=== PATIENT | female | born 1940 | race Caucasian/White ===

== ENCOUNTER 2017-03-19 12:45 | Emergency (ER) ==
[2017-03-19 12:49] VITALS: BP 188/85; TEMP 97.1; BMI 29.7
--- NOTE | 2017-03-19 12:57 | ED.PDOC ---
General ED Provider: Dr. ESTHELA HARKINS JR Chief Complaint: Abdominal Pain Stated Complaint: abdominal pain feels bad (3 weeks ago new med can cause abd pain) no NVD[End]4 days 97.1 86 18 95% 188/85 05/01 Time Seen by Physician: 12:56 Mode of Arrival: Walk-In Information Source: Patient Exam Limitations: No limitations Primary Care Provider: ALINA OLMOS Nursing and Triage Documentation Reviewed and Agree: No Review of Systems - Review Of Systems Constitutional: Reports: Malaise, Weakness Eyes: Reports: No symptoms Ears, Nose, Mouth, Throat: Reports: No symptoms Respiratory: Reports: No symptoms Cardiac: Reports: No symptoms GI: Reports: Abdomen distended, Abdominal pain, Nausea. Denies: Constipated : Reports: No symptoms Musculoskeletal: Reports: No symptoms Skin: Reports: No symptoms Neurological: Reports: Cognitive dysfunction, Headache Endocrine: Reports: No symptoms Hematologic/Lymphatic: Reports: No symptoms All Other Systems: Other Past Medical History - Past Medical History Endocrine: Reports: DM 2 Cardiovascular: Reports: Hypertension Respiratory: Reports: COPD Hematological: Reports: None Gastrointestinal: Reports: None Genitourinary: Reports: None Neuro/Psych: Reports: Migraine, Anxiety, Depression Musculoskeletal: Reports: Arthritis, Unknown Cancer: Reports: None Last Menstrual Period: none freq headaches Other Pertinent Past Medical History: Osteoarthritis. - Surgical History General Surgical History: Reports: Orthopedic (Left Knee replacement), Back Surgery - Family History Family History: Reports: None - Social History Smoking Status: Never smoker Hx Substance Use: No Alcohol Screening: None Physical Exam - Physical Exam Appearance: Well-appearing Pain Distress: Mild Eyes: MICHELLE, EOMI, Conjunctiva clear ENT: Ears normal, Nose normal, Oropharynx normal Neck: Supple Respiratory: Airway patent, Breath sounds clear, Breath sounds equal, Respirations nonlabored Cardiovascular: RRR, Pulses normal, No rub, No murmur GI/: Soft, No masses (LOWER Abdominal fullness without palpable mass), No Organomegaly, Tender, Bowel sounds hypoactive Musculoskeletal: Normal strength, ROM intact, No edema, No calf tenderness Skin: Warm, Dry, Normal color Neurological: Sensation intact, Motor intact, Alert, Oriented (person place poor short term memory) Psychiatric: Affect appropriate, Mood appropriate Critical Care Note - Critical Care Note Total Time (mins): 0 Course - Course Hematology/Chemistry: 03/19/17 12:58 03/19/17 12:58 Orders, Labs, Meds: Lab Review 03/19/17 03/19/17 12:58 13:10 WBC 6.84 RBC 4.47 Hgb 12.5 Hct 37.5 MCV 83.9 MCH 28.0 MCHC 33.3 RDW Coeff of [place] 13.7 Plt Count 238 Immature Gran % (Auto) 0.3 Neut % (Auto) 69.4 Lymph % (Auto) 23.1 Starr % (Auto) 5.6 Eos % (Auto) 1.0 Baso % (Auto) 0.6 Immature Gran # (Auto) 0.0 Neut # 4.8 Lymph # 1.6 Starr # 0.4 Eos # 0.1 Baso # 0.0 Sodium 140 Potassium 3.8 Chloride 100 Carbon Dioxide 29 Anion Gap 14.8 BUN 14 Creatinine 0.84 Estimated GFR (MDRD) 66.00 BUN/Creatinine Ratio 16.66 Glucose 137 H Calcium 9.9 Total Bilirubin 0.58 AST 18 ALT 12 Alkaline Phosphatase 63 Total Protein 6.9 Albumin 3.6 Globulin 3.3 Albumin/Globulin Ratio 1.09 Amylase 61 Lipase 13 Urine Color Yellow Urine Clarity Clear Urine pH 7.5 Ur Specific [place] 1.020 Urine Protein Negative Urine Glucose (UA) Negative Urine Ketones Negative Urine Blood Negative Urine Nitrite Negative Urine Bilirubin Negative Urine Urobilinogen 0.2 Ur Leukocyte Esterase Trace Urine Microscopic WBC 0-2 Ur Squamous Epith Cells 2-5 Ur Renal Epithelial Cell 2-5 Urine Bacteria Trace H. pylori IgG Antibody Negative Orders Category Date Time Status AMYLASE Stat LAB 03/19/17 12:58 Completed CBC W/ AUTO DIFF Stat LAB 03/19/17 12:58 Completed COMPREHENSIVE METABOLIC PANEL Stat LAB 03/19/17 12:58 Completed H. PYLORI SCREEN Stat LAB 03/19/17 12:58 Completed LIPASE Stat LAB 03/19/17 12:58 Completed URINALYSIS C & S IF INDICATED Stat LAB 03/19/17 13:10 Completed URINE CULTURE Stat LAB 03/19/17 13:55 Ordered Promethazine HCl [Phenergan Tab] MEDS 03/19/17 13:46 Discontinued 25 mg PO ONCE STA CT ABDOMEN/PELVIS WO CONTRAST Stat RADS 03/19/17 12:57 Completed Medications Discontinued Medications Generic Name Dose Route Start Last Admin Trade Name Freq PRN Reason Stop Dose Admin Promethazine HCl 25 mg 03/19/17 13:46 Phenergan Tab PO 03/19/17 13:47 ONCE STA Vital Signs: Temp Pulse Resp BP Pulse Ox 03/19/17 12:45 97.1 F L 86 18 188/85 H 95 Departure - Departure Time of Disposition: 13:45 Disposition: HOME SELF-CARE Discharge Problem: Abdominal pain Instructions: Abdominal Pain (ED) Condition: Fair Pt referred to PMD for follow-up: Yes Additional Instructions: STOP EXELON MAY USE PHENERGAN FOR NAUSEA CLEAR LIQUIDS FOR 12 HOURS FOLLOW UP PMD, DISCUSS WHETHER SYMPTOMS HAVE IMPROVED OFF OF MEDICATION XRAYS SHOW FLUID AND GAS IN STOMACH- CONSISTENT WITH MEDICATION INTOLERANCE NOTE MADE OF SITE ON LUNG- DISCUSS FOLLOW UP WITH PMD Allergies/Adverse Reactions: Allergies amoxicillin [Amoxicillin] Adverse Reaction (Verified 03/19/17 12:50) ampicillin Adverse Reaction (Verified 03/19/17 12:50) Home Medications: Ambulatory Orders Albuterol Sulfate [Proair Hfa] 2 puff IH Q6H PRN 01/07/13 Gabapentin 300 mg PO TID 01/07/13 Insulin Detemir [Levemir Flexpen] 40 unit SQ BEDTIME 01/07/13 Metformin HCl 1,000 mg PO BID 01/07/13 Mirabegron [Myrbetriq] 25 mg PO BEDTIME 01/07/13 Rivastigmine Tartrate [Exelon] 4.5 mg PO DAILY 01/07/13 Sertraline HCl 50 mg PO DAILY 01/07/13 Hydrocodone/Acetaminophen [[place] 5-325 Tablet] 1 tab PO Q6HR PRN #12 tablet Albuterol Sulfate [Proair Hfa] 2 puff IH Q4H 03/19/17 Linagliptin [Tradjenta] 5 mg PO DAILY 03/19/17 Lorazepam [Ativan] 0.5 mg PO BID 03/19/17 Losartan Potassium [Cozaar] 50 mg PO DAILY 03/19/17
[2017-03-19 13:07] LABS: BASOPHILS % (AUTO) 0.6 % (0.0-3.0); EOSINOPHILS # (AUTO) 0.1 K/ul (0.0-0.7); HEMATOCRIT 37.5 % (37.0-47.0); HEMOGLOBIN 12.5 g/dl (12.0-16.0); IMMATURE GRANULOCYTE % (AUTO) 0.3 % (0.0-5.0); LYMPHOCYTES # (AUTO) 1.6 K/uL (0.60-3.4); LYMPHOCYTES % (AUTO) 23.1 (10.0-50.0); MEAN CORPUSCULAR HGB CONC 33.3 (31.8-35.4); MEAN CORPUSCULAR VOLUME 83.9 fl (81.0-99.0); MONOCYTES # (AUTO) 0.4 K/uL (0.4-2.0); MONOCYTES % (AUTO) 5.6 (0-10); NEUTROPHILS # (AUTO) 4.8 K/ul (2.0-6.9); NEUTROPHILS % (AUTO) 69.4; PLATELET COUNT 238 10^3/uL (140-440); RED BLOOD COUNT 4.47 10^6/ul (4.20-5.40); WHITE BLOOD COUNT 6.84 K/ul (4.6-10.2)
[2017-03-19 13:20] LABS: H. PYLORI ANTIBODY NEGATIVE (NEGATIVE); H.PYLORI INTERNAL QC INTERNAL QC VALID
[2017-03-19 13:24] LABS: BILIRUBIN,URINE Negative (NEGATIVE); KETONES,URINE Negative (NEGATIVE); LEUKOCYTE ESTERASE ,URINE Trace (NEGATIVE); NITRITE,URINE Negative (NEGATIVE); PH,URINE 7.5 (5-9); PROTEIN,URINE Negative (NEGATIVE); URINE, BLOOD Negative (NEGATIVE)
[2017-03-19 13:25] LABS: ADD URINE MICROSCOPIC YES
[2017-03-19 13:27] LABS: BACTERIA,URINE TRACE (NOT PRESENT)
[2017-03-19 13:29] LABS: ALBUMIN 3.6 g/dL (3.4-5.0); ALBUMIN/GLOBULIN RATIO 1.09; ANION GAP 14.8; BILIRUBIN,TOTAL 0.58 mg/dL (0.00-1.20); BUN/CREATININE RATIO 16.66; CALCIUM 9.9 mg/dL (8.2-10.2); CREATININE 0.84 mg/dL (0.60-1.30); POTASSIUM 3.8 mmol/L (3.5-5.10); TOTAL PROTEIN 6.9 g/dL (5.8-8.1)
--- NOTE | 2017-03-19 13:40 | CT ---
EXAM: CT ABDOMEN AND PELVIS HISTORY: Abdominal pain TECHNIQUE: CT abdomen and pelvis without intravenous contrast. Images were reconstructed using 5 m m section thickness. Reformations were prepared. COMPARISON: 10/07/2014 FINDINGS: There is a tiny lateral right hepatic lobe 0.73 cm low attenuation focus probably a cyst, stable sin ce previous exam. Liver and spleen were otherwise within normal limits. Tortuous splenic hilar vess els. No obvious gallbladder, pancreas or adrenal gland pathology. Kidneys and ureters appear luke l. There are scattered vascular calcifications. Stomach is mildly distended with fluid and air. No appendix is identified. Normal bowel gas pattern . No uterus is seen. Urinary bladder appears normal. There is no ascites or inflammatory infiltra tion of the abdominal fat. Bones reveal moderate degenerative changes of the lumbosacral junction. Lung bases reveal a newly d eveloped 0.65 cm nodule posteriorly on the left which has no definite calcification. No pneumoperit oneum. IMPRESSION: 1. Mild distension of the stomach with fluid and air. Consider gastroparesis, ileus or gastritis. Bowel gas pattern within normal limits. No ascites or free air. 2. Newly developed 0.65 cm nodule posteriorly within the left lung base. Consider follow-up CT o juany in 4 months.
[2017-03-19] MEDS ORDERED: PHENERGAN TAB PO STA (13:46)
== END 2017-03-19 14:22 | disposition home or self-care (01) ==
LOC: ED 12:45
DX: R10.9 Unspecified abdominal pain (principal); R14.0 Abdominal distension (gaseous); R51 Headache; R91.1 Solitary pulmonary nodule; I10 Essential (primary) hypertension; E11.9 Type 2 diabetes mellitus without complications; Z79.899 Other long term (current) drug therapy
CPT/HCPCS: 36415; 80053; 81001; 82150; 83690; 85025; 86677; 87086; 99283